=== PATIENT | female | born 1955 | race African-American/Black ===

== ENCOUNTER 2019-10-29 08:30 | Outpatient (CLI) | payer OTHER ==
[~2019-10-29 08:30] MED LIST: AMLO2.5T5 PO; ATOR40TA78 PO; CIPR250T2 PO; GAS RELIEF OTC PO; LEVO25TA2 PO; RANI150C PO
[2019-10-29] MEDS ORDERED: FENTANYL PF 100 MCG/2ML ONE (08:53)
[2019-10-29] MEDS ORDERED: MIDAZOLAM 1 MG/ML, 5ML ONE (08:53)
== END 2019-10-29 23:59 | disposition home or self-care (01) ==
LOC: RAD 08:30
PROVIDERS: ATTEND Nurse Practitioner
DX: K57.30 Diverticulosis of large intestine without perforation or abscess without bleeding (principal); K44.9 Diaphragmatic hernia without obstruction or gangrene; E03.9 Hypothyroidism, unspecified; I10 Essential (primary) hypertension; E78.5 Hyperlipidemia, unspecified
CPT/HCPCS: 74181; 99156; 99157; J2250; J3010